=== PATIENT | female | born 1985 | race African-American/Black ===

== ENCOUNTER 2022-05-05 10:20 | Emergency (ER) | payer MEDICAID ==
[~2022-05-05] VITALS: Ht 157.5 cm; Wt 57.0 kg
[2022-05-05 10:28] VITALS: BP 125/77
[2022-05-05] MEDS ORDERED: KETOROLAC 60MG/2ML VIAL IM ONE (10:45)
== END 2022-05-05 11:00 | disposition home or self-care (01) ==
LOC: ER 10:20
DX: J02.9 Acute pharyngitis, unspecified (principal)
CPT/HCPCS: 81025; 96372; 99283; J1885; Z7610